=== PATIENT | male | born 2000 | race Caucasian/White ===

== ENCOUNTER 2022-12-20 11:53 | Emergency (ER) | payer OTHER ==
[~2022-12-20] VITALS: Ht 170.2 cm; Wt 74.1 kg
[2022-12-20] MEDS ORDERED: ASPIRIN 81MG CHEW TABLET PO ONE (13:25)
[2022-12-20 14:03] LABS: VENOUS BASE EXCESS 0.3 (-2.0-2.0); VENOUS HCO3 27.6 MMOL/L (23.0-27.0); VENOUS O2 SATURATION 80.7 % (60.0-80.0); VENOUS PARTIAL PRESSURE O2 45.5 mmHg (30.0-50.0); VENOUS PH 7.326 UNITS (7.330-7.430); VENOUS STANDARD HCO3 24.3 MMOL/L; VENOUS TOTAL CO2 29.2 MMOL/L (24.0-28.0)
[2022-12-20 14:10] LABS: INR 1.01
[2022-12-20 14:13] LABS: D-DIMER QUANT < 0.27 ug/mL (<0.5)
[2022-12-20 14:21] LABS: BASO % 0.4 % (0.0-1.0); EOS # 0.3 10^3/uL (0.0-0.5); EOS % 4.6 % (0.0-3.0); HEMATOCRIT 46.4 % (42.0-52.0); HEMOGLOBIN 15.8 g/dl (13.5-17.5); LYMPH # 1.9 10^3/uL (1.5-5.0); LYMPH % 27.3 % (24.0-44.0); MEAN CORPUSCULAR HEMOGLOBIN 28.4 pg (27.0-33.0); MEAN CORPUSCULAR HGB CONC 34.1 g/dl (32.0-36.5); MEAN CORPUSCULAR VOLUME 83.3 fl (80.0-96.0); MONO # 0.5 10^3/uL (0.0-0.8); MONO % 7.8 % (2.0-8.0); NEUTROPHILS # 4.1 10^3/uL (1.5-8.5); NEUTROPHILS % 59.6 % (36.0-66.0); PLATELET COUNT, AUTOMATED 257 10^3/uL (150-450); RED BLOOD COUNT 5.57 10^6/uL (4.30-6.10); WHITE BLOOD COUNT 6.8 10^3/uL (4.0-10.0)
[2022-12-20 14:31] LABS: RSV AMPLIFICATION NEGATIVE (NEGATIVE)
[2022-12-20] MEDS ORDERED: NS 1,000 ML IV ONE (16:05)
[2022-12-20] MEDS ORDERED: KETOROLAC 30 MG/ML 1ML VIAL IV ONE (16:05)
[2022-12-20 18:45] VITALS: BP 141/83; TEMP 96.4; O2SAT 95
[2022-12-20 22:27] LABS: CK-MB VALUE MASS < 1.0 NG/ML (<3.6)
[2022-12-20 22:30] LABS: ALBUMIN 4.4 G/DL (3.2-5.2); ALKALINE PHOSPHATASE 55 U/L (46-116); ALT/SGPT 21 U/L (7.0-40); AST/SGOT 15 U/L (<34); BILIRUBIN,DIRECT 0.4 MG/DL (<0.4); BILIRUBIN,TOTAL 0.7 MG/DL (0.3-1.2); BLOOD UREA NITROGEN 13 MG/DL (9-23); CALCIUM LEVEL 9.3 MG/DL (8.5-10.1); CARBON DIOXIDE LEVEL 26 MMOL/L (20-31); CHLORIDE LEVEL 104 MMOL/L (98-107); CPK CREATINE PHOSPHOKINASE 111 U/L (46-171); GLOMERULAR FILTRATION RATE > 60.0 (>60); GLUCOSE, FASTING 88 MG/DL (60-100); POTASSIUM SERUM 4.2 MMOL/L (3.5-5.1); SODIUM LEVEL 140 MMOL/L (136-145); TOTAL PROTEIN 6.9 G/DL (5.7-8.2)
== END 2022-12-20 18:56 | disposition home or self-care (01) ==
LOC: M ED 11:53
DX: R07.9 Chest pain, unspecified (principal); I49.49 Other premature depolarization; R00.1 Bradycardia, unspecified; F10.10 Alcohol abuse, uncomplicated
CPT/HCPCS: 71046; 80047; 80048; 80076; 82550; 82553; 82803; 84484; 85025; 85379; 85610; 87631; 93005; 93041; 94760; 96361; 96374; 99285; J1885